=== PATIENT | male | born 1945 | race Caucasian/White ===

== ENCOUNTER 2016-07-02 15:05 | Inpatient (IN) | payer OTHER, BC ==
[2016-07-02] VITALS (18 sets, daily range): BP systolic 107–152; BP diastolic 61–104
[~2016-07-02] VITALS: Ht 175.3 cm; Wt 50.3 kg
--- NOTE | ~2016-07-02 | D ---
[facility] [place] [address] DISCHARGE SUMMARY Name: AUGUST DUNBAR Room #: 314-P [facility] IN M.R.#: [id number] Admission: 07/02/16 Attend Phys: Adonis Foreman DO Discharge: 07/05/16 Date of : 45 Report #: [id number] THIS REPORT FOR: //name// CC: Adonis JENKINSYN MICHAEL DATE OF SERVICE: 07/05/2016 DISCHARGE CONDITION: Stable. DISCHARGE DISPOSITION: Home. DISCHARGE DIAGNOSES: 1. Altered mental status in the setting of polypharmacy including gabapentin, opiates, Sonata and underlying psychoactive medications and marijuana. 2. Chronic debility and chronic pain related to history of esophageal cancer. CONSULTATIONS WHILE INPATIENT: Dr. Chambers, GI; Dr. Wolf, psychiatry and Dr. Crawford, neurology. PHYSICAL EXAMINATION ON THE DAY OF DISCHARGE: VITAL SIGNS: The patient is afebrile. Pulse of 65, respiratory rate of 12, O2 sat 100 on room air and blood pressure 143/75. GENERAL: Cachectic gentleman, in no acute distress. HEENT: Unremarkable. NECK: No JVD or thyromegaly. CARDIOVASCULAR: S1 and S2 present. RESPIRATORY: Air entry present bilaterally. ABDOMEN: Soft and nontender. EXTREMITIES: Without edema. NEUROLOGIC: Awake, alert and appropriately interactive. SKIN: Dry. LABORATORIES AND INVESTIGATIONS: Without new concerning abnormalities. PROCEDURES AND TESTS: Include CT of abdomen and pelvis showing some constipation. No other acute obvious findings. MRI brain without acute findings. Head CT and chest x-ray without acute findings. BRIEF INPATIENT COURSE: The patient is a 71-year-old gentleman brought in for confusion to the emergency room. For details of admission, refer to initial H and P note by Dr. Alcaraz as well as various progress and consultation notes. Of note, this patient has chronic pancreatitis and chronic pain as well as wasting syndrome related to history of esophageal cancer. In light of this, he took pain medication including morphine and medical marijuana, which is likely the cause of his symptoms. Further workup has failed to reveal any other acute [facility] [address] [place] [address] DISCHARGE SUMMARY Name: AUGUST DUNBAR Room #: 314-P DIS IN M.R.#: [id number] Admission: 07/02/16 Attend Phys: Adonis Foreman DO Discharge: 07/05/16 Date of : 45 Report #: [id number] or causative pathology. By the day of discharge, I have discussed his condition with him and his and they feel he is back to his baseline. He will again only be advised to limit and avoid any sedative medications and has been strongly advised to follow up with the pain clinic post discharge back in [place] where he is originally from. He is medically stable for discharge to follow up with his primary care physician in [place]. He has been assessed by all other consultants as noted above. Please note the above is the summary and summary alone. For full details of admission including required test results, progress notes and lab results, please obtain the necessary records. By: 1141 1603 Arben Sorensen MD /nt
--- NOTE | ~2016-07-02 | EKG ---
[address] [place] [address] ELECTROCARDIOGRAM REPORT Name: AUGUST DUNBAR Room #: PRE [facility].R.#: [id number] Admission: Attend Phys: Discharge: Date of : 45 Report #: [id number] THIS REPORT FOR: //name// [facility] ED Test Date: 2016-07-02 Test Time: 15:57:10 Pat Name: AUGUST DUNBAR Department: Room: Gender: Junior Analyst: MZOOK : 1945 Requested By: Milad Velásquez Order Number: [id number] MD: Ronen Mcfadden Measurements Intervals [place] Rate: 91 P: 74 CT: 155 QRS: 6 QRSD: 90 T: 45 QT: 351 QTc: 432 Interpretive Statements Sinus rhythm Low voltage, extremity leads No previous ECG available for comparison Electronically Signed On 07-02-2016 16:00:43 CDT by Ronen Mcfadden [email or web address] <ELECTRONICALLY SIGNED> By: Ronen Mcfadden MD 07/02/16 1600 1557 1557 Ronen Mcfadden MD /EPI
--- NOTE | ~2016-07-02 | HC ---
[facility] [place] [address] CONSULTATION Name: AUGUST DUNBAR Room #: 247-P ADM IN M.R.#: [id number] Admission: 07/02/16 Attend Phys: Adonis Foreman DO Discharge: Date of : 45 Report #: [id number] THIS REPORT FOR: //name// CC: Adonis JENKINSYN MICHAEL DATE OF SERVICE: 07/04/2016 IDENTIFICATION: Psychiatric consultation is requested for altered mental status and narcotic abuse. HISTORY OF PRESENT ILLNESS: The patient is a 71-year-old , retired male with a past history of alcohol dependence, reportedly in remission. He has a history of recurrent major depression, but denies any history of memo or psychosis. The patient presented to the hospital with lethargy, which appears to be secondary to opioid ingestion, had reported he was taking 100 mg of morphine twice daily. He also got methadone out of her purse and ingested out as well. He was aggressive and confused initially in the hospital. He also had paranoid, believes that staff were trying to harm him. This morning, the patient's mental status is back to baseline and is in agreement with this. The patient states that he does not plan to take opioids any further. In addition to the above complaints, the patient does have an underlying history of depression. Oral intake has been poor recently and he has had unintentional weight loss. ALLERGIES: Reviewed the list available on the chart. Psychiatric medication allergies include ATIVAN and CYMBALTA. MEDICATIONS: Reviewed and include Wellbutrin-XL 150 mg daily, Haldol 0.5 mg every 4 hours as needed. PAST MEDICAL HISTORY: Esophageal cancer and pancreatitis. FAMILY HISTORY: Noncontributory. SOCIAL HISTORY: , lives with his in [place]. He is in the [place] area visiting family. He does also smoke cannabis. LABORATORY: Urine drug screen was positive for methadone and cannabis. MENTAL STATUS EXAMINATION: Adequate hygiene, quite cooperative, good eye [facility] [address] [place] [address] CONSULTATION Name: AUGUST DUNBAR Room #: 247-P [facility] IN M.R.#: [id number] Admission: 07/02/16 Attend Phys: Adonis Foreman DO Discharge: Date of : 45 Report #: [id number] contact. Speech regular rate and rhythm. Thought process linear, logical, and coherent. No hallucinations or delusions. No suicidal or homicidal ideation. Affect calm and euthymic. Alert and oriented times 3. Insight and judgment currently good. DIAGNOSES: 1. Delirium secondary to opioid ingestion, resolved. 2. Major depressive disorder, recurrent, moderate, without psychosis. PLAN: Altered mental status has resolved. No further psychiatric intervention is needed from that standpoint. The patient is well aware of the dangers of opioid ingestion and he claims to avoid these medications in the future. I will defer pain management to primary treatment. In terms of depression, I recommend we discontinue Wellbutrin, which can suppress appetite. The patient and are in agreement with this. Instead, we will initiate a trial of Remeron 15 mg at bedtime to help with depression and appetite stimulation. We will resume his home dose of Paxil 40 mg at bedtime. Thank you for this consultation. From a psychiatric standpoint, the patient is stable for discharge. Please do not hesitate to contact me with any further questions or concerns. By: [id number] 0103 Jenny Wolf MD /nt
--- NOTE | ~2016-07-02 | EEG ---
[facility] [place] [address] ELECTROENCEPHALOGRAM Name: AUGUST DUNBAR Room #: 314-P DIS IN M.R.#: [id number] Admission: 07/02/16 Attend Phys: Adonis Foreman DO Discharge: 07/05/16 Date of : 45 Report #: [id number] THIS REPORT FOR: //name// CC: Adonis JENKINSYN MICHAEL DATE OF SERVICE: 07/03/2016 This patient is being evaluated for altered mental status. EEG was done by placing the electrodes by standard 10-20 system of electrode placement. Both referential and sequential montages were used for recording. A lot of artifact is present, making this EEG interpretation very difficult. Background activity, the best I can tell is about 7-8 Hz, but it is intermixed with theta range slowing, when the patient is drowsy, as well as when the patient is awake. The patient does become drowsy and appeared to be asleep, demonstrating further slowing and what appeared to be some vertex sharp waves and sleep spindles on both sides. Photic stimulation was not carried out because the patient could not cooperate. IMPRESSION: This EEG is very difficult to interpret because lot of movement artifact is present, because the patient is unable to cooperate. It appeared to be moderately abnormal EEG because of intermixed slowing on both sides. That is a nonspecific abnormality, which can occur with encephalopathy, effect of psychotropic medication, dementia, etc. Clinical correlation is recommended. Thank you very much for this referral. <ELECTRONICALLY SIGNED> By: Erick Quiroz MD 07/06/16 1020 1758 1935 Erick Quiroz MD /nt
[2016-07-02 15:55] LABS: HEMATOCRIT 29.7 % (42.0-52.0); HEMOGLOBIN 9.9 gm/dL (14.0-18.0); MCH 33.8 pg (26.0-34.0); MCHC 33.3 g/dL (28.0-37.0); MCV 101.7 fL (80.0-100.0); RBC 2.92 mil/uL (4.50-6.00); RDW 16.5 % (10.5-14.5); WBC 6.4 thou/uL (4.0-11.0)
[2016-07-02 16:04] LABS: CALCIUM 9.6 mg/dL (8.5-10.1); CREATININE 1.3 mg/dL (0.7-1.3); POTASSIUM 4.1 mmol/L (3.5-5.1)
[2016-07-02 16:11] LABS: ALBUMIN 2.7 g/dL (3.4-5.0); DIRECT BILIRUBIN 0.2 mg/dL (<0.1-0.3); TOTAL BILIRUBIN 0.6 mg/dL (<0.1-1.0); TOTAL PROTEIN 5.7 g/dL (6.4-8.2); TROPONIN-I 0.07 ng/mL (<0.04-0.07)
[2016-07-02 17:10] LABS: APTT 27.8 Seconds (24.5-32.8); INR 1.1; PROTIME 11.8 Seconds (9.3-11.4)
[2016-07-02] MEDS ORDERED: PAROXETINE HCL40 MG PO (17:43)
[2016-07-02] MEDS ORDERED: PANTOPRAZOLE SO40 M1 PO (17:43)
[2016-07-02] MEDS ORDERED: NEURONTIN600 MG PO (17:43)
[2016-07-02] MEDS ORDERED: ASPIR 8181 MG PO (17:44)
[2016-07-02 17:45] LABS: URINE BLOOD NEGATIVE (Negative); URINE COLOR YELLOW; URINE GLUCOSE-RANDOM* NEGATIVE (Negative); URINE KETONES TRACE (Negative); URINE LEUKOCYTES-REFLEX NEGATIVE (Negative); URINE PROTEIN (DIPSTICK) 1+ (Negative); URINE SPECIFIC GRAVITY 1.025 (1.003-1.035)
[2016-07-02] MEDS ORDERED: WELLBUTRIN SR150 MG PO (17:45)
[2016-07-02] MEDS ORDERED: APAP500 PO (17:45)
[2016-07-02] MEDS ORDERED: TUMS PO (17:45)
[2016-07-02] MEDS ORDERED: CARAFATE 1 GM TA1 GM PO (17:46)
[2016-07-02] MEDS ORDERED: SONATA5 M1 PO (17:46)
[2016-07-02 17:47] LABS: URINE BILIRUBIN NEGATIVE (Negative)
[2016-07-02] MEDS ORDERED: OMEGA-31000 M1 PO (17:47)
[2016-07-02] MEDS ORDERED: UNICOMPLEX M TA1 TA1 PO (17:47)
[2016-07-02] MEDS ORDERED: VOLTAREN GEL 1100 G2 TOP (17:48)
[2016-07-02 17:50] LABS: SQUAMOUS None Seen /LPF (0-3)
[2016-07-02 17:51] LABS: CASTS None Seen /LPF (None Seen); CRYSTALS None Seen /LPF (None Seen); URINE RBC None Seen /HPF (0-2); URINE WBC-REFLEX 0-5 Rare /HPF (0-5)
[2016-07-02 18:12] LABS: ABG SAMPLE TYPE ARTERIAL; BE(vivo) 9.5 mmol/L (-2 to +3); HCO3 36.6 mmol/L (22.0-26.0); LACTATE 1.21 mmol/L (0.5-2.0); O2Hb 94.5 % (92.0-98.0); PCO2 65.6 mmHg (35.0-45.0); PO2 81.9 mmHg (80.0-100.0); STICK SITE R.RADIAL; pH 7.364 (7.360-7.450); sO2 95.3 % (92.0-98.0); tCO2 38.6 mmol/L (24.0-30.0)
[2016-07-02 19:19] LABS: AMP/METHAMP Negative (Negative); BARBITURATES Negative (Negative); BENZODIAZEPINES Negative (Negative); COCAINE Negative (Negative); METHADONE POSITIVE (Negative); OPIATES POSITIVE (Negative); PCP Negative (Negative); THC POSITIVE (Negative)
[2016-07-03] VITALS (29 sets, daily range): BP systolic 116–155; BP diastolic 74–120
[2016-07-03 04:19] LABS: ALBUMIN 2.3 g/dL (3.4-5.0); CALCIUM 9.2 mg/dL (8.5-10.1); CREATININE 0.9 mg/dL (0.7-1.3); TOTAL BILIRUBIN 0.9 mg/dL (<0.1-1.0); TOTAL PROTEIN 5.2 g/dL (6.4-8.2)
[2016-07-03 04:21] LABS: POTASSIUM 4.6 mmol/L (3.5-5.1)
[2016-07-03 04:40] LABS: HEMATOCRIT 28.2 % (42.0-52.0); HEMOGLOBIN 9.6 gm/dL (14.0-18.0); MCH 34.3 pg (26.0-34.0); MCV 101.1 fL (80.0-100.0); PLATELET COUNT 252 thou/uL (150-400); RBC 2.78 mil/uL (4.50-6.00); RDW 16.9 % (10.5-14.5); WBC 5.9 thou/uL (4.0-11.0)
[2016-07-03 04:42] LABS: MANUAL DIFF YES
[2016-07-03 08:44] LABS: ABSOLUTE NEUTROPHILS 5.1 thou/uL (1.4-8.2); PLATELET ESTIMATE NORMAL; TOTAL CELL COUNT 100
[2016-07-03 13:13] LABS: TSH 0.98 uIU/mL (0.358-3.740)
[2016-07-04] VITALS (28 sets, daily range): BP systolic 124–160; BP diastolic 76–135
[2016-07-04 04:36] LABS: HEMATOCRIT 27.9 % (42.0-52.0); HEMOGLOBIN 9.5 gm/dL (14.0-18.0); MCHC 34.2 g/dL (28.0-37.0); MCV 99.7 fL (80.0-100.0); PLATELET COUNT 263 thou/uL (150-400); RDW 16.5 % (10.5-14.5); WBC 7.5 thou/uL (4.0-11.0)
[2016-07-04 04:38] LABS: MANUAL DIFF YES
[2016-07-04 04:40] LABS: CALCIUM 9.2 mg/dL (8.5-10.1); CREATININE 0.8 mg/dL (0.7-1.3); POTASSIUM 4.1 mmol/L (3.5-5.1)
[2016-07-04 06:46] LABS: ABSOLUTE NEUTROPHILS 6.5 thou/uL (1.4-8.2); ANISOCYTOSIS 1+; OVALOCYTES 1+; TOTAL CELL COUNT 100
[2016-07-04 06:47] LABS: SCHISTOCYTES OCCASIONAL
[2016-07-04 07:35] LABS: AMYLASE 22 U/L (25-115)
[2016-07-04 20:13] LABS: TSH 0.812 uIU/mL (0.358-3.740)
[2016-07-04 20:43] LABS: FOLIC ACID 24.3 ng/mL (8.6-58.9)
[2016-07-05] VITALS (8 sets, daily range): BP systolic 120–165; BP diastolic 74–103
[2016-07-05 06:07] LABS: HEMATOCRIT 30.5 % (42.0-52.0); HEMOGLOBIN 10.3 gm/dL (14.0-18.0); MCH 33.6 pg (26.0-34.0); MCHC 33.9 g/dL (28.0-37.0); MCV 99.3 fL (80.0-100.0); RBC 3.07 mil/uL (4.50-6.00); RDW 16.5 % (10.5-14.5); WBC 6.8 thou/uL (4.0-11.0)
[2016-07-05 06:16] LABS: CALCIUM 9.5 mg/dL (8.5-10.1); CREATININE 0.8 mg/dL (0.7-1.3); POTASSIUM 3.7 mmol/L (3.5-5.1)
[2016-07-05] MEDS ORDERED: CREON DR 12,001 EACH PO (10:58)
== END 2016-07-05 15:27 | disposition home or self-care (01) | DRG 70 ==
LOC: ER 15:05 → ICU 18:09 → EROBS 18:09 → ICU 19:46 → 3N 07-05 07:26
PROVIDERS: Emergency Medicine; Family Medicine; Hospitalist; Internal Medicine Gastroenterology; Internal Medicine Geriatric Medicine; Psychiatry & Neurology Neurology
DX: G93.40 Encephalopathy, unspecified (principal); E43 Unspecified severe protein-calorie malnutrition; F05 Delirium due to known physiological condition; K86.1 Other chronic pancreatitis; F33.1 Major depressive disorder, recurrent, moderate; Z68.1 Body mass index [BMI] 19.9 or less, adult; R41.82 Altered mental status, unspecified; T40.605A Adverse effect of unspecified narcotics, initial encounter; T42.6X5A Adverse effect of other antiepileptic and sedative-hypnotic drugs, initial encounter; K59.03 Drug induced constipation; D53.9 Nutritional anemia, unspecified; G89.3 Neoplasm related pain (acute) (chronic); Z85.07 Personal history of malignant neoplasm of pancreas; Z92.3 Personal history of irradiation; Z92.21 Personal history of antineoplastic chemotherapy; Y92.89 Other specified places as the place of occurrence of the external cause; Z88.7 Allergy status to serum and vaccine; Z88.8 Allergy status to other drugs, medicaments and biological substances
CPT/HCPCS: 10203

== ENCOUNTER 2017-07-02 22:20 | Emergency (ER) | payer OTHER, BC ==
[~2017-07-02] VITALS: Ht 175.3 cm; Wt 61.2 kg
[~2017-07-02 22:20] MED LIST: APAP500 PO; ASPIR 8181 MG PO; CARAFATE 1 GM TA1 GM PO; CREON DR 12,001 EACH PO; NEURONTIN600 MG PO; OMEGA-31000 M1 PO; PANTOPRAZOLE SO40 M1 PO; PAROXETINE HCL40 MG PO; SONATA5 M1 PO; TUMS PO; UNICOMPLEX M TA1 TA1 PO; VOLTAREN GEL 1100 G2 TOP; WELLBUTRIN SR150 MG PO
[2017-07-03 00:06] LABS: ABSOLUTE NEUTROPHILS 5.1 thou/uL (1.4-8.2); BASOPHILS 0.3 % (0.0-2.0); EOSINOPHILS 4.6 % (0.0-3.0); HEMATOCRIT 31.5 % (42.0-52.0); HEMOGLOBIN 10.3 gm/dL (14.0-18.0); LYMPHOCYTES 10.4 % (24.0-44.0); MCH 30.6 pg (26.0-34.0); MCHC 32.5 g/dL (28.0-37.0); MONOCYTES 11.8 % (1.0-8.0); PLATELET COUNT 295 thou/uL (150-400); POLYS 72.9 % (36.0-66.0); RBC 3.36 mil/uL (4.50-6.00); RDW 16.9 % (10.5-14.5)
[2017-07-03 00:24] LABS: CALCIUM 9.6 mg/dL (8.5-10.1); CREATININE 0.9 mg/dL (0.7-1.3); MAGNESIUM 2.1 mg/dL (1.8-2.4); POTASSIUM 4.5 mmol/L (3.5-5.1)
== END 2017-07-03 01:34 | disposition home or self-care (01) ==
LOC: ER 22:20
PROVIDERS: Emergency Medicine
DX: S20.211A Contusion of right front wall of thorax, initial encounter (principal); W10.9XXA Fall (on) (from) unspecified stairs and steps, initial encounter; Y93.89 Activity, other specified; Y92.89 Other specified places as the place of occurrence of the external cause; Y99.8 Other external cause status; Z88.8 Allergy status to other drugs, medicaments and biological substances

== ENCOUNTER 2018-02-19 14:11 | Inpatient (IN) | payer OTHER, BC ==
[~2018-02-19] VITALS: Ht 177.8 cm; Wt 61.7 kg
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
--- NOTE | ~2018-02-19 | PLAN ---
[facility] [place] [address] REHAB UNIT PLAN OF CARE Name: AUGUST DUNBAR Room #: 511-P ADM IN M.R.#: [id number] Admission: 02/19/18 Attend Phys: Heriberto Ronquillo MD Discharge: Date of : 45 Report #: [id number] THIS REPORT FOR: //name// CC: PABLO Ronquillo [facility] physician/PCP DATE OF SERVICE: 02/21/2018 SUBJECTIVE: The patient is seen back today in followup. He is in no distress. OBJECTIVE: Temperature 98, pulse 88, respirations 20, blood pressure 123/73. He is alert and pleasant. No calf swelling. Transfers are min assist. Gait was min assist 75 feet with a front-wheeled walker. In occupational therapy, lower body dressing is max assist, upper body is being further evaluated. Each therapy with cognitive orders are being further evaluated. ASSESSMENT: 1. Toxic metabolic encephalopathy. 2. Right upper and right lower lobe infiltrates with sepsis. 3. Aspiration pneumonia, on modified diet. 4. Severe protein calorie malnutrition. 5. Acute renal insufficiency. 6. Elevated troponin, noncardiac, likely secondary to sepsis. 7. History of esophageal cancer, status post resection in 2012. 8. Premorbid chronic low back pain. 9. Anemia of chronic disease. 10. History of L3 compression fracture. 11. History of multiple falls. 12. History of tobacco abuse. 13. History of pancreatitis. PLAN: The overall plan of care is based on the preadmission screen, post-admission physician evaluation and information garnered from therapy assessments. 1. Estimated length of stay is probably going to be the next couple of weeks, 10-14 days and likely longer ____ depending upon how he does. 2. Medical prognosis is reasonably good. 3. Anticipated interventions includes the interdisciplinary acute inpatient rehabilitation program with PT, OT and speech, rehabilitation nursing assisting regarding medication management, skin care prophylaxis, bowel and bladder issues and nursing education. Case management is involved as well as the toy consultant physicians and the rest of the interdisciplinary acute rehabilitation team. 4. Anticipated functional outcomes would be for the patient to become modified independent with transfers, mobility, ADLs and improvement in overall cognition as well as diet as he is still on the nectar thickened liquids. [facility] [address] [place] [address] REHAB UNIT PLAN OF CARE Name: AUGUST DUNBAR Room #: 511-P ADM IN .R.#: [id number] Admission: 02/19/18 Attend Phys: Heriberto Ronquillo MD Discharge: Date of : 45 Report #: [id number] 5. Anticipated functional outcomes would be for the patient to become modified independent at the walker level with mobility and ADLs and improvement in cognition and swallowing, so he can return back home. 6. Discharge destination would be back home with family. He would probably at least initially go back to his daughters, but we will see how he does. 7. Expected therapy by discipline includes PT, OT, speech 1 hour per day each 5 days a week throughout the duration of the acute inpatient rehabilitation stay. By: 0917 1207 Heriberto Ronquillo MD /nt
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
--- NOTE | ~2018-02-19 | HC ---
[facility] [place] [address] CONSULTATION Name: AUGUST DUNBAR Room #: 511-P ADM IN M.R.#: [id number] Admission: 02/19/18 Attend Phys: Heriberto Ronquillo MD Discharge: Date of : 45 Report #: [id number] THIS REPORT FOR: //name// CC: PABLO Ronquillo [facility] physician/PCP DATE OF SERVICE: 02/22/2018 NEUROBEHAVIORAL STATUS EXAMINATION ATTENDING PHYSICIAN: Heriberto Ronquillo MD ARCHITECTURAL DRAFTSPERSON: Emanuel Whiteside, PhD CLINICAL PRESENTATION: The patient is a 73-year-old male admitted to the [facility] for a comprehensive inpatient rehabilitation program to improve functional mobility, activities of daily living and self-care and mental status secondary to deficits from a toxic metabolic encephalopathy. His assessment on rehab includes right upper and lower lobe infiltrates with sepsis, aspiration pneumonia, severe protein-calorie malnutrition, acute renal insufficiency, elevated troponin, noncardiac, likely secondary to sepsis, and a history of esophageal cancer, status post resection in 2012. Currently, he is cancer free; however, chronic low back pain, chronic narcotics; anemia of chronic disease; history of L3 compression fracture; history of multiple falls; tobacco abuse and pancreatitis. A complete description of his medical condition and history can be found in his medical record. Neuropsychological consultation was requested to provide assistance in the assessment of cognitive and emotional status and to provide recommendations and services. Prior to this most recent medical event, he was visiting his daughter with his when he experienced an acute onset of severe confusion and disorientation. He was brought into the Emergency Room and then subsequent hospitalization. The patient has a history of multiple falls and he has hit his head numerous times. He has 4 children. The patient is a high school graduate. 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 He describes his symptoms to include pain, depression and difficulty with memory. TECHNIQUES UTILIZED: Clinical interview, review of medical records, staff consultation and behavioral observation, family interview, mini mental status exam 2 standard version and clock drawing. EXAMINATION FINDINGS: The patient was alert and cooperative with the assessment. He was unable to accurately describe the reason for his [facility] [address] [place] [address] CONSULTATION Name: AUGUST DUNBAR Room #: 511-P [facility] IN M.R.#: [id number] Admission: 02/19/18 Attend Phys: Heriberto Ronquillo MD Discharge: Date of : 45 Report #: [id number] hospitalization. He does acknowledge difficulty with memory and subjective feelings of depression. However, his mood was euthymic during the interview and very personable. His performance on the MMSE 2 brief version was extremely low with a raw score of 9/16. He was 3/3 for initial registration, 1/5 for orientation to time, 4/[address] and 1/3 for immediate recall of 3 items after a brief time delay and distraction. His performance improved on the MMSE 2 standard version to a raw score 23 of 30, which is a T score of 34 and percentile rank of 5. Mild to moderate neurocognitive deficits are suggested. He was 5/5 for serial 7's, 2/2 for naming, 1/1 for repetition, 3/3 for auditory comprehension. He could read and follow a single command and copy a design. Clock drawing was impaired in regard to hand placement. The patient does appear distractible. Deficits are suggested in a immediate recall. DIAGNOSTIC IMPRESSION: 1. 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 2. Unspecified depressive disorder by history. RECOMMENDATIONS: The patient will require assistance in the management of medication. He has had several falls, several of which he has hit his head and there may be a contribution of repeated concussion contributing to his overall presentation. A more thorough neuropsych assessment upon his return to his home community will likely help clarify severity of cognitive deficits. Meanwhile, his will need to continue to manage medication and nutrition and finances. A structured program will help his overall recovery. The use of a memory and orientation notebook with him with compensatory strategies which will also help his overall recovery. Thank you very much for allowing me to provide the consultation on this patient. <ELECTRONICALLY SIGNED> By: Emanuel Whiteside, PhD 02/23/18 [id number] 16 Emanuel Whiteside, PhD /nt
--- NOTE | ~2018-02-19 | H ---
[facility] [place] [address] HISTORY AND PHYSICAL Name: AUGUST DUNBAR Room #: 511-P [facility] IN M.R.#: [id number] Admission: 02/19/18 Attend Phys: Heriberto Ronquillo MD Discharge: 02/26/18 Date of : 45 Report #: [id number] THIS REPORT FOR: //name// CC: PABLO Ronquillo [facility] physician/PCP DATE OF SERVICE: 02/19/2018 HISTORY AND PHYSICAL/POST-ADMISSION PHYSICIAN EVALUATION HISTORY OF PRESENT ILLNESS: The patient has been admitted for acute in-hospital inpatient rehabilitation. Please see my prior consult note dictation from yesterday as well as the full history and physical by Citlalil Figueroa, nurse practitioner. The patient and his are visiting family and originally from [place]. He is noted to have a toxic metabolic encephalopathy with right upper and right lower lobe infiltrate, sepsis, aspiration pneumonia, acute renal insufficiency, protein-calorie malnutrition. He does have the history of esophageal cancer with prior resection in 2012. He has premorbid chronic low back pain, on chronic narcotics prior history of L3 compression fracture and history of multiple falls. PAST MEDICAL HISTORY: See the above dictation. ALLERGIES: See the above dictation. SOCIAL HISTORY: See the above dictation. HABITS: See the above dictation. MEDICATIONS: Please see the medication listing, this includes vitamins, herbals, and supplements. PHYSICAL EXAMINATION: GENERAL: He was seen earlier oriented. He has had chronic back problems. CHEST: Some crackles at the bases. CARDIOVASCULAR: Regular rate and rhythm. ABDOMEN: Bowel sounds positive. NEUROLOGIC: Nontender. Functional range of motion. Strength is probably a grade 3+ to 4-/5 both upper and lower extremities. There is latency to his responses, can follow basic 1 step commands. ASSESSMENT: Please see the noted problem list from the dictation and the problem list above. From a post-admission physician evaluation perspective, there are no relevant [facility] [address] [place] [address] HISTORY AND PHYSICAL Name: AUGUST DUNBAR Room #: 511-P [facility] IN [facility].#: [id number] Admission: 02/19/18 Attend Phys: Heriberto Ronquillo MD Discharge: 02/26/18 Date of : 45 Report #: [id number] changes since the preadmission screening. Please see the noted review of prior and current medical and functional conditions and comorbidities. The patient previously used a cane or a walker for ambulation. He has been needing assistance with basic functional mobility skills at more of a min to mod assist for transfers and short distance ambulation as well as min assist for basic ADLs. He does have impairment with safety and judgment. As far as risk of complications, the patient has multiple medical comorbidities as noted above. Initial plan of care involves the interdisciplinary acute inpatient rehabilitation program with the goal of maximizing his functional independence, so that he can hopefully return back to his prior living situation. Measurable functional goals would be for him to be ambulatory with a walker versus cane and be able to perform ideally his own ADLs as well as improvement in cognition. Prognosis is reasonably good with estimated length of stay probably at least 1-2 weeks pending progress. Potential barriers would include his multiple medical comorbidities and decreased functional status. The patient meets diagnostic criteria for an acute in-hospital inpatient rehabilitation stay. He meets the medical necessity criteria and we will have the multiple framing consultant physicians continue to follow. He does have the tolerance for therapies and has appropriate discharge goals back to the home setting. <ELECTRONICALLY SIGNED> By: Heriberto Ronquillo MD 02/28/18 [id number] Heriberto Ronquillo MD /[facility]
[~2018-02-19 14:11] MED LIST changes: +ALBUTEROL2.5 MG/31 INH; +BAYER CHEWABLE81 MG PO; +DILAUDID 2 MG TA2 MG PO; +DULCOLAX5 MG PO; +FERROUS SULFAT325 MG PO; +FLOMAX0.4 MG PO; +HEPARIN SO5000 UNIT/ SUBQ; +MIRALAX17 GM PO; +MUCINEX600 MG PO; +NORTRIPTYLINE H10 M1 PO; +TRAZODONE HCL50 MG PO; +ZOSYN 3.3753.375 GM IV
[2018-02-19 17:00] VITALS: BP 124/62
[2018-02-19 20:02] VITALS: BP 121/75
[2018-02-20 06:10] LABS: HEMATOCRIT 25.3 % (42.0-52.0); HEMOGLOBIN 8.5 gm/dL (14.0-18.0); MCH 32.1 pg (26.0-34.0); MCHC 33.7 g/dL (28.0-37.0); MCV 95.2 fL (80.0-100.0); RBC 2.66 mil/uL (4.50-6.00); RDW 18.6 % (10.5-14.5); WBC 6.8 thou/uL (4.0-11.0)
[2018-02-20 06:16] LABS: CALCIUM 8.7 mg/dL (8.5-10.1); CREATININE 0.6 mg/dL (0.7-1.3); POTASSIUM 3.6 mmol/L (3.5-5.1)
[2018-02-20 08:05] VITALS: BP 120/70
[2018-02-20 16:40] VITALS: BP 153/98
[2018-02-20 16:43] VITALS: BP 152/92
[2018-02-20 16:45] VITALS: BP 110/63
[2018-02-20 19:40] VITALS: BP 123/73
[2018-02-21 08:50] VITALS: BP 133/83
[2018-02-21 20:04] VITALS: BP 117/66
[2018-02-22 08:07] VITALS: BP 149/79
[2018-02-22 15:54] VITALS: BP 97/61
[2018-02-22 19:24] VITALS: BP 143/91
[2018-02-22 19:27] VITALS: BP 128/86
[2018-02-22 19:28] VITALS: BP 105/69
[2018-02-23 07:40] VITALS: BP 124/64
[2018-02-23 20:15] VITALS: BP 125/85; BP 126/73; BP 94/64
[2018-02-24 07:51] VITALS: BP 141/84
[2018-02-24 14:00] VITALS: BP 103/70; BP 130/91
[2018-02-24 20:36] VITALS: BP 122/69
[2018-02-25 04:16] LABS: ABSOLUTE NEUTROPHILS 3.6 thou/uL (1.4-8.2); BASOPHILS 1.2 % (0.0-2.0); EOSINOPHILS 2.1 % (0.0-3.0); HEMATOCRIT 26.5 % (42.0-52.0); HEMOGLOBIN 8.7 gm/dL (14.0-18.0); LYMPHOCYTES 12.3 % (24.0-44.0); MCH 31.3 pg (26.0-34.0); MCV 94.9 fL (80.0-100.0); MONOCYTES 8.7 % (1.0-8.0); PLATELET COUNT 355 thou/uL (150-400); POLYS 75.7 % (36.0-66.0); RBC 2.79 mil/uL (4.50-6.00); RDW 18.5 % (10.5-14.5); WBC 4.8 thou/uL (4.0-11.0)
[2018-02-25 04:52] LABS: CALCIUM 8.9 mg/dL (8.5-10.1); CREATININE 0.7 mg/dL (0.7-1.3); MAGNESIUM 1.7 mg/dL (1.8-2.4); POTASSIUM 4.4 mmol/L (3.5-5.1)
[2018-02-25 08:21] VITALS: BP 128/77
[2018-02-25 21:01] VITALS: BP 112/76
[2018-02-26 08:00] VITALS: BP 139/90
[2018-02-26] MEDS ORDERED: COLACE100 MG PO (11:00)
[2018-02-26] MEDS ORDERED: AUGMENTIN 875-1 EACH PO (11:00)
[2018-02-26] MEDS ORDERED: VENTOLIN HFA 1818 GM INH (11:00)
[2018-02-26] MEDS ORDERED: MIRALAX17 GM PO (11:00)
[2018-02-26] MEDS ORDERED: PROBIOTIC1 EAC2 PO (11:00)
[2018-02-26 11:13] VITALS: BP 139/90
== END 2018-02-26 13:40 | disposition home or self-care (01) | DRG 91 ==
LOC: ENTRNSPT 02-26 13:21 → EDTRNSPTSTS 02-26 13:24
PROVIDERS: Nurse Practitioner; Physical Medicine & Rehabilitation
DX: G92 Toxic encephalopathy (principal); A41.9 Sepsis, unspecified organism; J69.0 Pneumonitis due to inhalation of food and vomit; E43 Unspecified severe protein-calorie malnutrition; N17.9 Acute kidney failure, unspecified; Z68.1 Body mass index [BMI] 19.9 or less, adult; M54.5 Low back pain; R29.6 Repeated falls; D63.8 Anemia in other chronic diseases classified elsewhere; G89.4 Chronic pain syndrome; R53.81 Other malaise; R51 Headache; D69.6 Thrombocytopenia, unspecified; Z66 Do not resuscitate; Z85.01 Personal history of malignant neoplasm of esophagus; Z91.81 History of falling; Z87.891 Personal history of nicotine dependence; Z88.8 Allergy status to other drugs, medicaments and biological substances; Z88.7 Allergy status to serum and vaccine; Z79.899 Other long term (current) drug therapy; K21.9 Gastro-esophageal reflux disease without esophagitis; G31.84 Mild cognitive impairment of uncertain or unknown etiology
CPT/HCPCS: 10112